=== PATIENT | male | born 1950 | race Caucasian/White ===

== ENCOUNTER 2024-06-06 08:53 | Day surgery (SDC) | payer MEDICARE ==
[~2024-06-06] VITALS: Ht 177.8 cm; Wt 105.9 kg
[2024-06-06] MEDS ORDERED: SILD100T70 PO (09:17)
[2024-06-06] MEDS ORDERED: BUPR-564 PO (09:17)
[2024-06-06] MEDS ORDERED: MULT-1085 PO (09:17)
[2024-06-06] MEDS ORDERED: AMLO10TA13 (09:17)
[2024-06-06] MEDS ORDERED: ATOR20TA66 PO (09:17)
[2024-06-06] MEDS ORDERED: FLO0.4C (09:17)
[2024-06-06] MEDS ORDERED: triamterene (09:17)
[2024-06-06] MEDS ORDERED: LOSA100T58 (09:17)
[2024-06-06] MEDS ORDERED: ASPI-612 PO (09:18)
[2024-06-06 09:29] VITALS: BP 155/78; PULSE 59; RESP 10
[2024-06-06] MEDS ORDERED: MIDAZolam 1 MG/ML 5ML VIAL ONE (10:13)
[2024-06-06] MEDS ORDERED: diphenhydrAMINE 50 mg/ml inj ONE (10:13)
[2024-06-06] MEDS ORDERED: fentaNYL/PF 50MCG/1 ML 2ML syringe ONE (10:13)
[2024-06-06] MEDS ORDERED: simethicone 40mg/0.6ml oral drops 30ml ONE (10:48)
[2024-06-06 10:50] VITALS: BP 153/82; PULSE 60; RESP 16; O2SAT 95
[2024-06-06 11:00] VITALS: BP 148/78; PULSE 57; RESP 15; O2SAT 95
[2024-06-06 11:10] VITALS: BP 152/77; PULSE 59; RESP 17; O2SAT 95
[2024-06-06 11:20] VITALS: BP 151/82; PULSE 57; RESP 20; O2SAT 95
== END 2024-06-06 11:30 | disposition home or self-care (01) ==
LOC: GI LAB 08:53
PROVIDERS: ATTEND Internal Medicine Gastroenterology
DX: Z12.11 Encounter for screening for malignant neoplasm of colon (principal); D12.2 Benign neoplasm of ascending colon; D12.0 Benign neoplasm of cecum; D12.3 Benign neoplasm of transverse colon; K57.30 Diverticulosis of large intestine without perforation or abscess without bleeding; K64.8 Other hemorrhoids; I10 Essential (primary) hypertension; Z86.010 Personal history of colon polyps; Z79.82 Long term (current) use of aspirin; Z79.899 Other long term (current) drug therapy
CPT/HCPCS: 45385; A4620; C1889; J1200; J2250; J3010; J7030; Z7512; 88305; 99152; 99153

== ENCOUNTER 2025-04-01 08:27 | Emergency (ER) | payer MEDICARE ==
[~2025-04-01] VITALS: Ht 185.4 cm; Wt 111.4 kg
[~2025-04-01 08:27] MED LIST: AMLO10TA13; ASPI-612 PO; ATOR20TA66 PO; BUPR-480 PO; LOSA100T58; MULT-1085 PO; SILD100T70 PO; TAMS-55; triamterene
[2025-04-01 08:28] VITALS: BP 198/108; PULSE 65; RESP 18; TEMP 97.5; O2SAT 99
--- NOTE | 2025-04-01 09:17 | Physician Documentation ---
History of Present Illness ~ Chief Complaint: Rash Stated Complaint: POISON OAK Time Seen by MD: 08:56 HPI 74-year-old male presents to the ED with a complaint of a rash that has worsened over the last 2-3 days. States that his primary symptoms are on the left side of his face which itchy and reddened. He adds in his left arm has developed sporadic rash that is moderately itchy , deniespain. Or fever He says he does not believe he was in the brush recently but does have animals. Day of Onset: Apr 01, 2025 Medication Reconciliation Allergies: Coded Allergies: Penicillins (Unverified Allergy, Unknown, RASH, 04/01/25) Scheduled Amlodipine Besylate (Amlodipine Besylate), 1 TAB DAILY, (Reported) Aspirin (Aspir 81), 1 TAB PO DAILY, (Reported) Atorvastatin Calcium (Atorvastatin Calcium), 1 TAB PO DAILY, (Reported) Bupropion HCl (Bupropion Xl), 1 TAB PO DAILY, (Reported) Losartan Potassium (Losartan Potassium), 1 TAB DAILY, (Reported) Multivitamin (Multi Vitamin Daily), 1 TAB PO DAILY, (Reported) Sildenafil Citrate (Sildenafil Citrate), 0.5-1 TAB PO DAILY, (Reported) Miscellaneous Medications Tamsulosin Hcl* (Flomax*), (Reported) [triamterene], (Reported) Review of Systems All Other Systems at this time: Reviewed and Negative ROS As stated above in the HPI, otherwise all systems are reviewed and negative. Physical Exam Vital Signs: Temperature: 97.5, Source: Temporal, Heart Rate: 65, Respiratory Rate: 18, BP: 198/108, Pulse Oximetry: 99, Weight: 111.360 Oxygen Flow Rate: 0 Physical Exam General: Alert, no apparent distress. HEENT: PERRL, EOMI, no injection, moist mucous membranes. Erythema swelling in the left eye lower eyelid, weeping no drainage Extremities: Normal range of motion, no deformity minor rash Left forearm Neurologic: Oriented x4. Psychiatric: Normal mood and affect. Skin: Normal color, warm and dry. No edema, no ecchymosis. Progress Results/Orders Results/Orders Completed Orders - MYNOR PEÑA NP Triamcinolone Acet 40mg/Ml Inj (Kenalog- (04/01/25 09:10) Vital Signs 04/01/25 08:28 Temp 97.5 Pulse 65 Resp 18 B/P (MAP) 198/108 Pulse Ox 99 O2 Flow Rate 0 Medical Decision Making Findings Pre patient empirically for suspected poison oak rash. Denies any history of diabetes. I did advise him of possible side effects from corticosteroid administration Differential Dx:Considerations: Include: Abscess, AIDS/HIV, Anthrax (cutaneous), Atopic dermatitis, Candidiasis, Contact dermatitis, Drug reaction, Erythema multiforme, Erysipelas, Gangrene, Herpes zoster, Herpes simplex, Hidradenitis suppurativa, Impetigo, Intertrigo, Lymes disease, Molluscum contagiosum, Osteomyelitis, Pediculosis, Pityriasis rosea, Psoriaisis, RMSF, Rosacea, Scabies, Scarlet fever, Tinea, Urticaria, Varicella, Viral exanthema, Other Departure Disposition: 01 HOME / SELF CARE / HOMELESS Impression: Primary Impression: Urticaria Discharge Instructions: Pruritus Referrals: NO PRIMARY CARE PROVIDER (PCP) Education Educated: Patient Educated regarding: diagnosis Signature Scribe Signature: r Attestation: Scribed for Mynor Peña Software Development Project Manager by Mynor Yañez NP . 04/01/25 09:16 MYNOR PEÑA NP Apr 01, 2025 09:17
[2025-04-01] MEDS: triamcinolone acetonide 40mg/ml inj IM ONE (09:34)
== END 2025-04-01 09:49 | disposition home or self-care (01) ==
LOC: ER 08:28
DX: L50.9 Urticaria, unspecified (principal); Z88.0 Allergy status to penicillin; Z88.8 Allergy status to other drugs, medicaments and biological substances
CPT/HCPCS: 96372; 99283; J3301